=== PATIENT | female | born 1945 | race Caucasian/White ===

== ENCOUNTER → 2018-06-22 | Day surgery (SDC) | payer OTHER ==
[~2018-06-22] VITALS: Ht 158.8 cm; Wt 81.0 kg
[~2018-06-22] MED LIST: CALCIUM 600 +1 EA16 PO; CELEBREX200 MG PO; COZAAR100 MG PO; DAILY VALUE1 EACH PO; EFFEXOR75 MG PO; GLUCOSAMINE &1 EAC1 PO; HYZAAR 100-21 TABLET PO
== END | disposition home or self-care (01) ==
LOC: CATH 11:39
PROC: 4A023N7 Measurement of Cardiac Sampling and Pressure, Left Heart, Percutaneous Approach (ICD-10-PCS; principal; 2018-06-22)
PROC: B2111ZZ Fluoroscopy of Multiple Coronary Arteries using Low Osmolar Contrast (ICD-10-PCS; principal; 2018-06-22)
DX: R94.39 Abnormal result of other cardiovascular function study (principal); I10 Essential (primary) hypertension; I45.10 Unspecified right bundle-branch block; Z88.0 Allergy status to penicillin
CPT/HCPCS: 93005; C1769; C1887; J1644; J2250; J3010; J7040